=== PATIENT | female | born 1980 | race Caucasian/White ===

== ENCOUNTER 2023-10-22 10:06 | Emergency (ER) | payer SELFPAY ==
[~2023-10-22] VITALS: Ht 162.6 cm; Wt 68.9 kg
[2023-10-22 11:08] VITALS: BP_SYST 166; PULSE 123; RESP 22; TEMP 99.3; O2SAT 100
[2023-10-22] MEDS ORDERED: KETOROLAC TROMETHAMINE 15 MG VIAL IM ONE (11:45)
[2023-10-22 12:12] LABS: INFLUENZA TYPE B NEGATIVE (NEGATIVE)
[2023-10-22 12:13] LABS: INFLUENZA TYPE A POSITIVE (NEGATIVE)
[2023-10-22] MEDS ORDERED: cloNIDine HCL 0.1 MG TABLET PO ONE (12:15)
[2023-10-22] MEDS ORDERED: AUG875 PO (12:46)
[2023-10-22 13:21] VITALS: BP_SYST 152; PULSE 115; RESP 20; TEMP 98.8; O2SAT 96
== END 2023-10-22 13:24 | disposition home or self-care (01) ==
LOC: SED 10:06
DX: J10.1 Influenza due to other identified influenza virus with other respiratory manifestations (principal); J18.9 Pneumonia, unspecified organism; R05.9 Cough, unspecified; R09.81 Nasal congestion; R09.89 Other specified symptoms and signs involving the circulatory and respiratory systems; I10 Essential (primary) hypertension; Z79.899 Other long term (current) drug therapy; Z20.822 Contact with and (suspected) exposure to COVID-19
CPT/HCPCS: 99284; 71045; 87426; 36415; 96372; 87804 ×2; J1885

== ENCOUNTER 2023-12-30 13:34 | Emergency (ER) | payer MEDICAID ==
[~2023-12-30] VITALS: Ht 160 cm; Wt 57.6 kg
[~2023-12-30 13:34] MED LIST: AUG875 PO
[2023-12-30 13:55] VITALS: BP_SYST 177; PULSE 120; RESP 19; TEMP 98.2; O2SAT 99
[2023-12-30 14:40] LABS: ANION GAP 9 (5-15); CALCIUM 8.7 mg/dL (8.4-11.0); CARBON DIOXIDE 28 mmol/L (23-29); CHLORIDE 101 mmol/L (98-107); CREATININE 0.81 mg/dL (0.55-1.30); GFR AFRICAN AMERICAN 99 mL/min (>90); GLUCOSE 94 mg/dL (74-106); POTASSIUM 3.8 mmol/L (3.5-5.1); SODIUM SERUM 138 mmol/L (136-145); UREA NITROGEN, BLOOD 12 mg/dL (8-21)
[2023-12-30 14:42] LABS: GFR NON AFRICAN-AMERICAN 82 mL/min (>90)
[2023-12-30 14:43] LABS: SERUM HCG (QUALITATIVE) NEGATIVE (NEGATIVE)
[2023-12-30 14:44] LABS: BASOPHILS # (AUTO) 0.1 K/uL (0.0-0.2); BASOPHILS % (AUTO) 0.7 % (0.0-2.0); EOSINOPHILS # (AUTO) 0.2 K/uL (0.0-0.4); EOSINOPHILS % (AUTO) 1.6 % (0.0-4.0); HEMATOCRIT 45.8 % (36-48); HEMOGLOBIN 15.1 g/dL (12.0-16.0); LYMPHOCYTES # (AUTO) 2.4 K/uL (1.0-5.5); LYMPHOCYTES % (AUTO) 20.5 % (20.5-51.5); MEAN CORPUSCULAR HEMOGLOBIN 30 pg (27-31); MEAN CORPUSCULAR HGB CONC 33 % (32-36); MEAN CORPUSCULAR VOLUME 90 fL (79.0-98.0); MONOCYTES # (AUTO) 1.2 K/uL (0.0-1.0); MONOCYTES % (AUTO) 10.5 % (1.7-9.3); NEUTROPHILS # (AUTO) 7.7 K/uL (1.8-7.7); NEUTROPHILS % (AUTO) 66.7 % (40.0-70.0); PLATELET COUNT (AUTO) 310 K/uL (130-430); RED CELL DISTRIBUTION WIDTH 13.1 % (9.0-15.0); WHITE BLOOD COUNT (AUTO) 11.5 K/uL (4.8-10.8)
[2023-12-30] MEDS ORDERED: PROMETHAZINE HCL/CODEINE 6.25-10 mg/5 mL UDC PO ONE (15:00)
[2023-12-30] MEDS: guaiFENesin 200 MG/CODEINE 20 MG/ 10 ML UDC PO ONE (15:15)
[2023-12-30 16:29] LABS: INFLUENZA TYPE A Negative (NEGATIVE); INFLUENZA TYPE B NEGATIVE (NEGATIVE)
[2023-12-30] MEDS ORDERED: PHEDM120 PO (17:14)
[2023-12-30] MEDS ORDERED: ALBMDI INH (17:14)
[2023-12-30] MEDS ORDERED: PRED20TA PO (17:14)
[2023-12-30 17:58] VITALS: BP_SYST 158; PULSE 100; RESP 20; TEMP 98.6; O2SAT 98
== END 2023-12-30 17:50 | disposition home or self-care (01) ==
LOC: SED 13:34
DX: J98.4 Other disorders of lung (principal); R05.9 Cough, unspecified; R06.02 Shortness of breath; R53.1 Weakness; I10 Essential (primary) hypertension; Z79.899 Other long term (current) drug therapy; Z20.822 Contact with and (suspected) exposure to COVID-19
CPT/HCPCS: 36415; 71045; 80048; 83605; 83880; 84484; 84703; 85025; 85379; 93005; 99285